=== PATIENT | male | born 1980 | race Caucasian/White ===

== ENCOUNTER 2020-10-02 08:43 | Emergency (ER) | payer OTHER ==
[~2020-10-02] VITALS: Ht 170.2 cm; Wt 84.9 kg
[2020-10-02 08:46] VITALS: BP 130/90
[2020-10-02] MEDS ORDERED: ketorolac tromethamine 15mg/ml inj. IM ONE (09:10)
[2020-10-02] MEDS ORDERED: CYCL-1 PO (10:07)
[2020-10-02] MEDS ORDERED: IBUP-1984 PO (10:07)
== END 2020-10-02 10:29 | disposition home or self-care (01) ==
LOC: ER 08:45
DX: M54.42 Lumbago with sciatica, left side (principal); R51.9 Headache, unspecified; Z79.899 Other long term (current) drug therapy; V87.7XXA Person injured in collision between other specified motor vehicles (traffic), initial encounter; Y93.89 Activity, other specified; Y92.89 Other specified places as the place of occurrence of the external cause; Y99.8 Other external cause status
CPT/HCPCS: 72128; 72131; 96372; 99284; J1885; 99285